=== PATIENT | female | born 1945 | race Caucasian/White ===

== ENCOUNTER → 2023-06-25 13:35 | Outpatient (REF) | payer MEDICARE, SELFPAY ==
[2023-06-25 15:59] LABS: % Basophils 0.3 % (0-2); % Eosinophils 3.2 % (0-6); % Immature Granulocytes 0.5 % (0-0.5); % Lymphocytes 20.4 % (20.5-51.1); % Monocytes 8.1 % (1.7-9.3); % Neutrophils 67.5 % (42.2-75.2); Absolute Eosinophils 0.2 10^3/uL (0-0.7); Absolute Lymphocytes 1.2 10^3/uL (1.2-3.4); Absolute Monocytes 0.5 10^3/uL (0.1-0.6); Absolute Neutrophils 4.1 10^3/uL (1.4-6.5); Hematocrit 39.3 % (37.0-47.0); Hemoglobin 13.3 g/dL (12.0-16.0); Mean Corp Hgb Conc. 33.8 g/dL (33.0-37.0); Mean Corpuscular Hgb 31.4 pg (27.0-31.0); Mean Corpuscular Volume 92.7 fL (81.0-99.0); Mean Platelet Volume 11.3 fL (7.4-10.4); Nucleated Red Blood Cells % 0 %; Platelet Count 345 10^3/uL (130-400); Red Blood Cell Count 4.24 10^6/uL (4.20-5.40); Red Cell Dist. Width 12.4 % (11.5-14.5)
[2023-06-25 16:04] LABS: ALT (SGPT) 26 U/L (0-35); AST (SGOT) 34 U/L (14-36); Albumin 4.4 g/dl (3.5-5.0); Alkaline Phosphatase 136 U/L (38-126); Blood Urea Nitrogen 26 mg/dl (7-17); Carbon Dioxide 30 mmol/L (22-30); Chloride 101 mmol/L (98-107); Glucose 109 mg/dl (70-99); Sodium 135 mmol/L (135-145); Total Bilirubin 0.7 mg/dl (0.2-1.3); Total Protein 7.1 g/dl (6.3-8.2); Uric Acid 6.6 mg/dl (2.5-6.2); eGFR > 60.00
== END ==
LOC: HWLAB 13:35
PROVIDERS: ATTENDING PHYSICIAN Internal Medicine; FAMILY PHYSICIAN Family Medicine
DX: M10.9 Gout, unspecified (principal); Z51.81 Encounter for therapeutic drug level monitoring
CPT/HCPCS: 36415; 80053; 84550; 85025

== ENCOUNTER → 2023-09-23 10:59 | Outpatient (REF) | payer MEDICARE, SELFPAY ==
[2023-09-23 12:27] LABS: % Basophils 0.5 % (0-2); % Eosinophils 3.4 % (0-6); % Immature Granulocytes 0.4 % (0-0.5); % Lymphocytes 20.6 % (20.5-51.1); % Monocytes 8.8 % (1.7-9.3); % Neutrophils 66.3 % (42.2-75.2); Absolute Eosinophils 0.2 10^3/uL (0-0.7); Absolute Lymphocytes 1.2 10^3/uL (1.2-3.4); Absolute Monocytes 0.5 10^3/uL (0.1-0.6); Absolute Neutrophils 3.7 10^3/uL (1.4-6.5); Hematocrit 39.8 % (37.0-47.0); Hemoglobin 13.2 g/dL (12.0-16.0); Mean Corp Hgb Conc. 33.2 g/dL (33.0-37.0); Mean Corpuscular Hgb 31.3 pg (27.0-31.0); Mean Corpuscular Volume 94.3 fL (81.0-99.0); Mean Platelet Volume 11.4 fL (7.4-10.4); Nucleated Red Blood Cells % 0 %; Platelet Count 291 10^3/uL (130-400); Red Blood Cell Count 4.22 10^6/uL (4.20-5.40); Red Cell Dist. Width 13.1 % (11.5-14.5); White Blood Cell Count 5.6 10^3/uL (4.8-10.8)
[2023-09-23 13:16] LABS: Erythrocyte Sed Rate 23 mm/hour (0-20)
[2023-09-23 13:47] LABS: ALT (SGPT) 29 U/L (0-35); AST (SGOT) 32 U/L (14-36); Albumin 4.4 g/dl (3.5-5.0); Alkaline Phosphatase 126 U/L (38-126); Blood Urea Nitrogen 19 mg/dl (7-17); Carbon Dioxide 25 mmol/L (22-30); Chloride 103 mmol/L (98-107); Glucose 102 mg/dl (70-99); Potassium 4.2 mmol/L (3.5-5.1); Sodium 137 mmol/L (135-145); Total Bilirubin 0.6 mg/dl (0.2-1.3); Total Protein 6.9 g/dl (6.3-8.2); Uric Acid 5.6 mg/dl (2.5-6.2); eGFR > 60.00
[2023-09-23 14:01] LABS: C-Reactive Protein < 5.00 mg/L (0.0-10.00)
== END ==
LOC: REG 10:59
PROVIDERS: ATTENDING PHYSICIAN Internal Medicine; FAMILY PHYSICIAN Family Medicine
DX: M10.9 Gout, unspecified (principal); Z51.81 Encounter for therapeutic drug level monitoring
CPT/HCPCS: 36415; 80053; 84550; 85025; 85652; 86140

== ENCOUNTER 2024-09-17 13:04 | Emergency (ER) | payer MEDICARE, SELFPAY ==
[2024-09-17 13:16] VITALS: BP 139/76
--- NOTE | 2024-09-17 13:44 | ED.GENMED ---
History of Present Illness
General
Chief Complaint: Fall
Time Seen by Provider: 09/17/24 13:34
History of Present Illness
History of Present Illness:
79-year-old female with history of hypertension and hyperlipidemia presents the emergency department for evaluation of bilateral knee pain after a fall at 0100 hours in the morning today. She slipped while walking to the bathroom, fell onto both
knees and struck her face on the floor. No LOC. Has been able to walk without difficulty today. She is concerned about her knees primarily because of history of knee replacements bilaterally. Denies any headache, vision changes, dizziness. She
does not take any anticoagulants
Past History
Past History
ED Past Medical History: HTN, Hypercholesterolemia and Other (Seasonal allergies, osteoarthritis)
ED Past Surgical History: Cholecystectomy and Orthopedic (Left knee replacement)
Social History
Tobacco: Former smoker
Alcohol: None
Personal:
Living: with family
Employment: Retired
Family History
Family History: Hypertension
Review of Systems
Review of Systems
Allergies reviewed?: Yes
All Other Systems: ROS reviewed and negative except as documented in HPI and ROS
Phy Exam
Physical Exam
Physical Exam:
GEN: Well appearing, NAD, WDWN
HEENT: Oral mucosa moist, no scleral icterus, no nasal congestion. Minor ecchymosis to the mid nasal bridge with no gross deformity, no nasal septal hematoma. No midline cervical spine tenderness
Cardiac: Regular rate and rhythm, no murmur
Lung: No respiratory distress, no tachypnea
MSK: Mild soft tissue swelling of the right knee, no gross deformities. Range of motion normal. No swelling or deformities of the left knee, range of motion normal
Skin: Good color, no pallor or jaundice, no rashes
Neuro: AO x3; CN II-XII grossly intact. BUE strength 5/5 in all griggs, sensation intact and symmetric. BLE strength 5/5 in all griggs, sensation intact and symmetric
Psych: Calm, cooperative
Course
Orders/Labs/Results
Orders:
Orders
09/17/24 13:42
CR Knee - Left 4 Or More View* Urgent
Comment:
Reason For Exam: fall
CR Knee- Right 4 Or More View* Urgent
Comment:
Reason For Exam: fall
Vital Signs
Initial and Last Documented VS:
Initial Vital Signs
Temp Pulse Resp BP Pulse Ox
98.7 F 83 18 139/76 97
09/17/24 13:16 09/17/24 13:16 09/17/24 13:16 09/17/24 13:16 09/17/24 13:16
Last Documented Vital Signs
Temp Pulse Resp BP Pulse Ox
97.8 F 83 18 123/70 98
09/17/24 13:49 09/17/24 13:16 09/17/24 13:16 09/17/24 13:48 09/17/24 13:49
MDM/Problems Addressed
MDM/Problems Addressed:
79-year-old female presents after a fall. She did strike the face on the ground however has minimal signs of trauma and does not take any anticoagulants, neurologically she is intact with no complaints of headache or dizziness thus I do not feel
there is indication for CT of the head. She was primarily concerned for bilateral knee pain, x-rays were obtained and independently interpreted by me showing no evidence for fracture or hardware disruption. Discussed supportive care
*Critical Care Note
Total Time (30-74mins, 75-104mins- exclusive of procedures): Not Applicable
ED Attending Note
-
Portions of this chart may have been created with voice recognition software.� Occasional wrong word or��sound alike� substitutions may have occurred due to the inherent limitations of voice recognition software.
Discharge Plan
Departure
Patient Disposition: Home (Routine Discharge)
Date of Disposition: 09/17/24
Time of Disposition: 14:36
Patient with high blood pressure during this ER visit?: No
Discharge Problem:
Contusion of knee
Instructions: Contusion (DC)
Prescriptions:
No Action
celecoxib [Celebrex] 200 MG capsule
200 mg PO BID
aspirin [Aspir-Low] 81 MG tablet,delayed release (DR/EC)
81 mg PO DAILY
gemfibrozil 600 MG tablet
600 mg PO BID@0730,1630
fexofenadine-pseudoephedrine 120 MG/60 MG tablet extended release 12 hr
1 tab PO DAILY
Referrals:
UNKNOWN - PT DOES,NOT KNOW [Family Provider] -
Activity Restrictions/Additional Instructions:
I do not appreciate any signs of fracture or hardware injury on your x-rays. If your knees continue to hurt please follow-up with your orthopedist. We will notify you if our radiologist identifies any abnormalities that were not seen during your
ER visit. Ice the right knee to reduce swelling
Interventions
Interventions:
*Risk Screen - Suicide Last Done: 09/17/24 13:16
*General Assessment Last Done: 09/17/24 13:56
*Neglect/Abuse Screening Last Done: 09/17/24 13:16
*ED- Fall Risk Assessment Last Done: 09/17/24 13:50
*ED COVID-19 Vaccine History Last Done: 09/17/24 13:50
ED-Musculoskeletal Assessment Last Done: 09/17/24 13:50
ED- Neurological Assessment Last Done: 09/17/24 13:50
ED-Skin Assessment Last Done: 09/17/24 13:50
Discharge Date and Time
Print Language: GREENLANDIC
[2024-09-17 13:48] VITALS: BP 123/70
[2024-09-17 13:49] VITALS: BMI 31.3
[2024-09-17 14:48] VITALS: BP 111/92
== END 2024-09-17 14:50 | disposition home or self-care (01) ==
LOC: EMR 13:04
PROVIDERS: EMERGENCY PHYSICIAN Emergency Medicine
DX: S80.01XA Contusion of right knee, initial encounter (principal); M25.562 Pain in left knee; W01.0XXA Fall on same level from slipping, tripping and stumbling without subsequent striking against object, initial encounter; I10 Essential (primary) hypertension; E78.5 Hyperlipidemia, unspecified; E78.00 Pure hypercholesterolemia, unspecified; Z87.891 Personal history of nicotine dependence; Z90.49 Acquired absence of other specified parts of digestive tract; Z96.652 Presence of left artificial knee joint
CPT/HCPCS: 99283; 73564

== ENCOUNTER → 2024-11-08 12:14 | Outpatient (REF) | payer MEDICARE, SELFPAY | LOC: RAD 12:14 | PROVIDERS: ATTENDING PHYSICIAN Internal Medicine; FAMILY PHYSICIAN Family Medicine | DX: M19.90 Unspecified osteoarthritis, unspecified site (principal); M25.50 Pain in unspecified joint | CPT/HCPCS: 73130 ==